=== PATIENT | female | born 1975 | race Caucasian/White ===

== ENCOUNTER 2017-06-03 17:37 | Emergency (ER) | payer OTHER ==
[~2017-06-03] VITALS: Ht 162.6 cm; Wt 59.7 kg
[~2017-06-03 17:37] MED LIST: ESTR1TAB12 PO; MORP1INJ45 PO; MORP60TA20 PO
[2017-06-03 17:42] VITALS: BP 138/83; PULSE 92; RESP 17; TEMP 98; O2SAT 100
[2017-06-03] MEDS ORDERED: SODIUM CHLOR 0.9% 1000 ML INJ 1,000 ML IV SCH (17:58)
[2017-06-03] MEDS ORDERED: SODIUM CHLORIDE 0.9% FLUSH 10 ML FLUSH IV FLUSH PRN (18:00)
[2017-06-03] MEDS ORDERED: ONDANSETRON HCL 4 MG/2 ML VIAL IVP ONE (18:00)
[2017-06-03] MEDS ORDERED: MORPHINE SULFATE 2 MG/ML INJ IV PUSH ONE (18:00)
--- NOTE | 2017-06-03 18:01 | PD ---
HPI Chief Complaint: Flank/Kidney Pain Time Seen by Provider: 17:52 Travel History International Travel<30 days: No Contact w/Intl Traveler<30days: No Traveled to known affect area: No History of Present Illness HPI 41-year-old female with history of nephrolithiasis, followed by urology at the [facility], here for evaluation of bilateral flank pain. Patient reports that the pain has been going on for the last week, described as cramping, radiates to her bilateral lower abdomen, currently 8 out of 10, constant, intermittently worse at times, worse after urinating. She has not had any fevers or chills. She has become nauseous with vomiting. She did have a few episodes of loose bowel movements 3 days ago. History of hysterectomy and appendectomy. PFSH Past Medical History Blood Disorders: No Anxiety: Yes Depression: Yes Heart Rhythm Problems: No Cancer: No Cardiovascular Problems: No High Cholesterol: No Chest Pain: No Congestive Heart Failure: No Diabetes: No Diminished Hearing: No Endocrine: No Gastrointestinal Disorders: Yes Headaches: Yes Immune Disorder: No Implanted Vascular Access Dvce: No Kidney Stones: Yes Musculoskeletal: No Neurologic: No Psychiatric: Yes Reproductive: Yes (OVARIAN CYSTS) Respiratory: No Immunizations Current: No Thyroid Disease: No ?: Not Menopausal: Yes : 3 Para: 3 Miscarriage: 0 : 0 Ovarian Cysts: Yes (LEFT OVARIAN CYST BY HISTORY) Tubal Ligation: Yes (2005) Past Surgical History Abdominal Surgery: Yes Appendectomy: Yes Section: Yes (X's 3) Cholecystectomy: Yes Genitourinary Surgery: Yes (STENTS X2 AND REMOVALS) Gynecologic Surgery: Yes (TUBAL LIGATION) Hysterectomy: Yes Tonsillectomy: Yes Other Surgery: Yes ("lithotripsy's") Social History Alcohol Use: No Tobacco Use: No Substance Use: No Allergies-Medications (Allergen,Severity, Reaction): Coded Allergies: gabapentin (Verified Allergy, Severe, shortness of breath, 06/03/17) iodine (Verified Allergy, Severe, "rash", 06/03/17) iohexol (Verified Allergy, Severe, Flushing,HIVES,iv contrast, 06/03/17) NEEDS TO BE PREMEDICATED potassium iodide (Verified Allergy, Severe, "rash", 06/03/17) povidone-iodine (Verified Allergy, Severe, "rash", 06/03/17) sodium iodide (Verified Allergy, Severe, "rash", 06/03/17) sodium iodide (Verified Allergy, Severe, "rash", 06/03/17) tamsulosin (Verified Allergy, Severe, "swell up", 06/03/17) Reported Meds & Prescriptions Reported Meds & Active Scripts Active Reported Chlorthalidone 25 Mg Tab 12.5 Mg PO DAILY Review of Systems Except as stated in HPI: all other systems reviewed are Neg Physical Exam Narrative GENERAL: Well-developed, well-nourished, no apparent distress. SKIN: Focused skin assessment warm/dry. No rash. HEAD: Atraumatic. Normocephalic. EYES: Pupils equal and round. No scleral icterus. No injection or drainage. ENT: No nasal bleeding or discharge. Mucous membranes pink and moist. CARDIOVASCULAR: Regular rate and rhythm. RESPIRATORY: No accessory muscle use. Clear to auscultation. Breath sounds equal bilaterally. GASTROINTESTINAL: Abdomen soft, nondistended. Mild lower abdominal suprapubic tenderness without peritoneal signs. Normal bowel sounds. MUSCULOSKELETAL: No obvious deformities. No clubbing. No cyanosis. No edema. Moderate bilateral CVA tenderness. NEUROLOGICAL: Awake and alert. No obvious cranial nerve deficits. Motor grossly within normal limits. Normal speech. No motor deficits. Normal strength in all 4 extremities. PSYCHIATRIC: Appropriate mood and affect; insight and judgment normal. Data Data Last Documented VS Vital Signs Date Time Temp Pulse Resp B/P (MAP) Pulse Ox O2 Delivery O2 Flow Rate FiO2 06/03/17 19:19 92 16 102/68 (79) 99 Room Air 06/03/17 17:42 98.0 Orders Orders Complete Blood Count With Diff (06/03/17 17:58) Comprehensive Metabolic Panel (06/03/17 17:58) Lipase (06/03/17 17:58) Prothrombin Time / Inr (Pt) (06/03/17 17:58) Act Partial Throm Time (Ptt) (06/03/17 17:58) Urinalysis - C+S If Indicated (06/03/17 17:58) Ct Abd/Pel W/O Iv Contrast (06/03/17 17:58) Iv Access Insert/Monitor (06/03/17 17:58) Ecg Monitoring (06/03/17 17:58) Oximetry (06/03/17 17:58) Ondansetron Inj (Zofran Inj) (06/03/17 18:00) Sodium Chlor 0.9% 1000 Ml Inj (Ns 1000 M (06/03/17 17:58) Sodium Chloride 0.9% Flush (Ns Flush) (06/03/17 18:00) Morphine Inj (Morphine Inj) (06/03/17 18:00) Urine Culture (06/03/17 18:14) Ceftriaxone Inj (Rocephin Inj) (06/03/17 18:45) Phenazopyridine (Pyridium) (06/03/17 18:45) Hydromorphone Pf Inj (Dilaudid Pf Inj) (06/03/17 18:45) Labs Laboratory Tests Test 06/03/17 18:14 White Blood Count 6.9 TH/MM3 Red Blood Count 4.71 MIL/MM3 Hemoglobin 14.3 GM/DL Hematocrit 42.5 % Mean Corpuscular Volume 90.2 FL Mean Corpuscular Hemoglobin 30.3 PG Mean Corpuscular Hemoglobin Concent 33.5 % Red Cell Distribution Width 11.9 % Platelet Count 181 TH/MM3 Mean Platelet Volume 8.7 FL Neutrophils (%) (Auto) 61.2 % Lymphocytes (%) (Auto) 29.6 % Monocytes (%) (Auto) 7.1 % Eosinophils (%) (Auto) 1.3 % Basophils (%) (Auto) 0.8 % Neutrophils # (Auto) 4.1 TH/MM3 Lymphocytes # (Auto) 2.1 TH/MM3 Monocytes # (Auto) 0.5 TH/MM3 Eosinophils # (Auto) 0.1 TH/MM3 Basophils # (Auto) 0.1 TH/MM3 CBC Comment DIFF FINAL Differential Comment Prothrombin Time 10.6 SEC Prothromb Time International Ratio 1.0 RATIO Activated Partial Thromboplast Time 28.7 SEC Urine Color YELLOW Urine Turbidity CLEAR Urine pH 6.5 Urine Specific [place] 1.020 Urine Protein NEG mg/dL Urine Glucose (UA) NEG mg/dL Urine Ketones TRACE mg/dL Urine Occult Blood NEG Urine Nitrite NEG Urine Bilirubin NEG Urine Leukocyte Esterase TRACE Urine WBC 20-24 /hpf Urine WBC Clumps FEW Urine Squamous Epithelial Cells 0-5 /hpf Urine Bacteria FEW /hpf Microscopic Urinalysis Comment CULTURE INDICATED Blood Urea Nitrogen 17 MG/DL Creatinine 0.90 MG/DL Random Glucose 91 MG/DL Total Protein 7.5 GM/DL Albumin 4.0 GM/DL Calcium Level 9.4 MG/DL Alkaline Phosphatase 73 U/L Aspartate Amino Transf (AST/SGOT) 13 U/L Alanine Aminotransferase (ALT/SGPT) 17 U/L Total Bilirubin 0.3 MG/DL Sodium Level 137 MEQ/L Potassium Level 3.9 MEQ/L Chloride Level 102 MEQ/L Carbon Dioxide Level 29.7 MEQ/L Anion Gap 5 MEQ/L Estimat Glomerular Filtration Rate 69 ML/MIN Lipase 325 U/L [facility] Medical Decision Making Medical Screen Exam Complete: Yes Emergency Medical Condition: Yes Differential Diagnosis Nephrolithiasis, ureterolithiasis, pancreatitis, pyelonephritis, UTI, cystitis, renal colic, colitis Narrative Course Vital signs show heart rate 85, blood pressure 118/83, pulse ox 100% on room air , oral temp of 98F. CBC is unremarkable. CMP is unremarkable. Lipase is 325. UA: Trace site esterase, trace ketones, 20-24 WBCs, few wbc clumps, few bacteria. Patient was started on IV Rocephin. CT abdomen pelvis: CONCLUSION: Medullary nephrocalcinosis and small bilateral nonobstructing kidney stones. Appearance is similar to prior exam Patient was made aware of all findings and although she was given a dose of 4 mg of IV morphine, he continues to have pain. She is resting comfortably and is in no acute distress. She was given IV Rocephin for her UA findings. She will be given a dose of IV Dilaudid, and if her pain improves, she is stable for discharge home with outpatient follow-up with her primary care physician and urologist this week. She will be started on Bactrim. She was advised on when to return to the emergency department. She verbalizes understanding and agreement with plan. Patient was given 1 mg of IV Dilaudid with resolution of pain. Diagnosis Primary Impression: UTI (urinary tract infection) Qualified Codes: N10 - Acute pyelonephritis Additional Impressions: Bilateral flank pain Nephrolithiasis Referrals: Primary Care Physician 3 days Urologist 3 days Additional Instructions: Follow-up with your primary care physician this week. Follow-up with your urologist this week. Return to the emergency department for worsening symptoms or any other concerns. Scripts Phenazopyridine (Pyridium) 100 Mg Tab 100 MG PO Q8H Y for DYSURIA for 5 Days, #15 TAB 0 Refills Prov: Misbah Ovalle MD 06/03/17 Hydrocodone-Acetaminophen (Hydrocodone-Acetaminophen) 5-300 Mg Tab 1 TAB PO Q6H Y for PAIN, #15 TAB 0 Refills Prov: Misbah Ovalle MD 06/03/17 Sulfamethoxazole-Trimethoprim (Bactrim DS) 800-160 Mg Tab 1 TAB PO BID for Infection for 14 Days, #28 TAB 0 Refills Prov: Misbah Ovalle MD 06/03/17 Disposition: 01 DISCHARGE HOME Condition: Stable Misbah Ovalle MD Jun 03, 2017 18:01
[2017-06-03 18:14] VITALS: O2SAT 97
[2017-06-03] MEDS ORDERED: CHLO25TA2 PO (18:23)
[2017-06-03 18:24] LABS: AUTOMATED NEUTROPHIL # 4.1 TH/MM3 (1.8-7.7); BASOPHIL # 0.1 TH/MM3 (0-0.2); BASOPHIL % 0.8 % (0.0-2.0); EOSINOPHIL # 0.1 TH/MM3 (0-0.4); EOSINOPHIL % 1.3 % (0.0-4.0); HEMATOCRIT 42.5 % (35.0-46.0); HEMOGLOBIN 14.3 GM/DL (11.6-15.3); LYMPH % 29.6 % (9.0-44.0); LYMPHOCYTE # 2.1 TH/MM3 (1.0-4.8); MEAN CELL VOLUME 90.2 FL (80.0-100.0); MEAN CORPUSCULAR HEMOGLOBIN 30.3 PG (27.0-34.0); MEAN CORPUSCULAR HGB CONC 33.5 % (32.0-36.0); MEAN PLATELET VOLUME 8.7 FL (7.0-11.0); MONO % 7.1 % (0.0-8.0); MONOCYTE # 0.5 TH/MM3 (0-0.9); NEUT % 61.2 % (16.0-70.0); PLATELET COUNT 181 TH/MM3 (150-450); RED BLOOD COUNT 4.71 MIL/MM3 (4.00-5.30); RED CELL DISTRIBUTION WIDTH 11.9 % (11.6-17.2); WHITE BLOOD COUNT 6.9 TH/MM3 (4.0-11.0)
[2017-06-03 18:25] LABS: BILIRUBIN, URINE NEG (NEG); BLOOD, URINE NEG (NEG); GLUCOSE,URINE NEG (NEG); KETONE, URINE TRACE mg/dL (NEG); NITRITE,URINE NEG (NEG); PH, URINE 6.5 (5.0-8.5); URINE LEUKOCYTE ESTERASE TRACE (NEG)
[2017-06-03 18:34] LABS: URINE COLOR YELLOW (YELLW/STRAW)
[2017-06-03 18:36] LABS: BACTERIA, URINE FEW /hpf; CHLORIDE 102 MEQ/L (98-107); SODIUM (NA) 137 MEQ/L (136-145); SQUAMOUS EPITHELIAL CELL URINE 0-5 /hpf (0-5); WHITE BLOOD CELL CLUMPS FEW
[2017-06-03 18:39] LABS: BICARBONATE 29.7 MEQ/L (21.0-32.0); CALCIUM 9.4 MG/DL (8.5-10.1); LIPASE 325 U/L (73-393)
[2017-06-03 18:40] VITALS: BP 118/83; PULSE 85; RESP 16; O2SAT 100
[2017-06-03 18:40] LABS: BLOOD UREA NITROGEN 17 MG/DL (7-18); GLUCOSE,RANDOM 91 MG/DL (74-106)
[2017-06-03 18:41] LABS: PROTHROMBIN TIME - PATIENT 10.6 SEC (9.8-11.6)
[2017-06-03 18:42] LABS: ALT (GPT) 17 U/L (10-53); AST (GOT) 13 U/L (15-37); GLOMERULAR FILTRATION RATE 69 ML/MIN (>89)
[2017-06-03 18:44] LABS: TOTAL BILIRUBIN ADULT 0.3 MG/DL (0.2-1.0); TOTAL PROTEIN 7.5 GM/DL (6.4-8.2)
[2017-06-03 18:45] LABS: ALKALINE PHOSPHATASE 73 U/L (45-117)
[2017-06-03] MEDS ORDERED: cefTRIAXone INJ 1,000 MG in SODIUM CHLORIDE 0.9% INJ 100 ML IV ONE (18:45)
[2017-06-03] MEDS ORDERED: HYDROmorphone HCL PF 2 MG/ML VIAL IV PUSH ONE (18:45)
[2017-06-03] MEDS ORDERED: PHENAZOPYRIDINE HCL 200 MG TAB PO ONE (18:45)
--- NOTE | 2017-06-03 19:04 | RADRPT ---
EXAM DATE/TIME: 06/03/2017 18:42 [place] COMPARISON: CT ABDOMEN & PELVIS W/O CONTRAST, February 10, 2015, 20:13. INDICATIONS : Bilateral flank pain for one week. ORAL CONTRAST: No oral contrast ingested. RADIATION DOSE: 9.57 CTDIvol (mGy) MEDICAL HISTORY : Renal calculi. Ovarian cysts. SURGICAL HISTORY : Appendectomy. Cholecystectomy.Hysterectomy.Tubal ligation, x 3. ENCOUNTER: Initial ACUITY: 1 week PAIN SCALE: 8/10 LOCATION: Bilateral flank TECHNIQUE: Volumetric scanning of the abdomen and pelvis was performed. Using automated exposure control and ad justment of the mA and/or kV according to patient size, radiation dose was kept as low as reasonably achievable to obtain optimal diagnostic quality images. DICOM format image data is available electro nically for review and comparison. FINDINGS: LOWER LUNGS: The visualized lower lungs are clear. LIVER: Visualized portions are unremarkable. Gallbladder is surgically absent. SPLEEN: Normal size without lesion. PANCREAS: Within normal limits. KIDNEYS: Medullary nephrocalcinosis and small nonobstructing stones present bilaterally. No evidence of hydron ephrosis. No evidence of ureteral stone. ADRENAL GLANDS: Within normal limits. VASCULAR: There is no aortic aneurysm. BOWEL/MESENTERY: The stomach, small bowel, and colon demonstrate no acute abnormality. There is no free intraperitone al air or fluid. ABDOMINAL WALL: Within normal limits. RETROPERITONEUM: There is no lymphadenopathy. BLADDER: No wall thickening or mass. REPRODUCTIVE: Within normal limits. INGUINAL: There is no lymphadenopathy or hernia. MUSCULOSKELETAL: Within normal limits for patient age. CONCLUSION: Medullary nephrocalcinosis and small bilateral nonobstructing kidney stones. Appearance is similar to prior exam Jus James MD on June 03, 2017 at 19:00 Board Certified Radiologist. This report was verified electronically.
[2017-06-03 19:19] VITALS: BP 102/68; PULSE 92; RESP 16; O2SAT 99
[2017-06-03] MEDS ORDERED: PHEN0.4T PO (19:54)
[2017-06-03] MEDS ORDERED: BACT800T5 PO (19:54)
[2017-06-03] MEDS ORDERED: HYDR-4107 PO (19:54)
[2017-06-03] MEDS ORDERED: METOCLOPRAMIDE HCL 10 MG/2 ML VIAL IV PUSH ONE (20:00)
[2017-06-03] MEDS ORDERED: ACETAMINOPHEN/HYDROcodone 325 MG/5 MG TAB PO ONE (20:15)
[2017-06-03 20:37] VITALS: BP 110/66; PULSE 88; RESP 16; O2SAT 99
== END 2017-06-03 20:40 | disposition home or self-care (01) ==
LOC: PHED 17:37
DX: N10 Acute pyelonephritis (principal); N20.0 Calculus of kidney; R11.2 Nausea with vomiting, unspecified
CPT/HCPCS: 74176; 80053; 81001; 83690; 85025; 85610; 85730; 87086; 96361; 96365; 96375; 99285; J0696; J1170; J2270; J2405; J2765; J7030

== ENCOUNTER 2017-06-23 19:18 | Emergency (ER) | payer OTHER ==
[~2017-06-23] VITALS: Ht 162.6 cm; Wt 60.2 kg
[~2017-06-23 19:18] MED LIST changes: +BACT800T5 PO; +CHLO25TA2 PO; -ESTR1TAB12 PO; +HYDR-4107 PO; -MORP1INJ45 PO; -MORP60TA20 PO; +PHEN0.4T PO
[2017-06-23 19:36] VITALS: BP 116/81; PULSE 109; RESP 18; TEMP 99.7; O2SAT 98
[2017-06-23] MEDS ORDERED: LORA0.5T PO (20:29)
[2017-06-23] MEDS ORDERED: HYDROmorphone HCL PF 1 MG/ML VIAL IVP ONE (21:30)
[2017-06-23] MEDS ORDERED: ONDANSETRON HCL 4 MG/2 ML VIAL IV ONE (21:30)
[2017-06-23 21:33] LABS: BILIRUBIN, URINE NEG (NEG); BLOOD, URINE MOD (NEG); GLUCOSE,URINE NEG (NEG); KETONE, URINE 15 mg/dL (NEG); NITRITE,URINE NEG (NEG); URINE LEUKOCYTE ESTERASE NEG (NEG)
[2017-06-23 21:44] LABS: URINE COLOR YELLOW (YELLW/STRAW)
[2017-06-23 21:45] LABS: RBC, URINE 0-3 /hpf (0-3); SQUAMOUS EPITHELIAL CELL URINE 0-5 /hpf (0-5); WHITE BLOOD CELL CLUMPS FEW
[2017-06-23] MEDS: SODIUM CHLOR 0.9% 1000 ML INJ 1,000 ML IV SCH ×2 (21:45→21:53)
[2017-06-23 21:53] LABS: AUTOMATED NEUTROPHIL # 1.3 TH/MM3 (1.8-7.7); BASOPHIL % 0.5 % (0.0-2.0); EOSINOPHIL # 0.1 TH/MM3 (0-0.4); EOSINOPHIL % 2.2 % (0.0-4.0); HEMATOCRIT 37.8 % (35.0-46.0); HEMOGLOBIN 12.8 GM/DL (11.6-15.3); LYMPH % 34.7 % (9.0-44.0); LYMPHOCYTE # 0.9 TH/MM3 (1.0-4.8); MEAN CELL VOLUME 89.9 FL (80.0-100.0); MEAN CORPUSCULAR HEMOGLOBIN 30.5 PG (27.0-34.0); MEAN PLATELET VOLUME 8.5 FL (7.0-11.0); MONO % 14.8 % (0.0-8.0); MONOCYTE # 0.4 TH/MM3 (0-0.9); NEUT % 47.8 % (16.0-70.0); PLATELET COUNT 114 TH/MM3 (150-450); RED CELL DISTRIBUTION WIDTH 11.8 % (11.6-17.2); WHITE BLOOD COUNT 2.7 TH/MM3 (4.0-11.0)
[2017-06-23 22:04] LABS: CALCIUM 8.7 MG/DL (8.5-10.1)
[2017-06-23 22:08] LABS: CREATININE 0.77 MG/DL (0.50-1.00)
[2017-06-23] MEDS ORDERED: PHEN0.4T PO (22:40)
[2017-06-23] MEDS ORDERED: MACR100C2 PO (22:40)
--- NOTE | 2017-06-23 22:40 | PD ---
HPI Chief Complaint: Flank/Kidney Pain Time Seen by Provider: 21:18 Travel History International Travel<30 days: No Contact w/Intl Traveler<30days: No Traveled to known affect area: No History of Present Illness HPI The patient is a 41-year-old female who has a history of medullary sponge kidney and who complains of fever, bilateral flank pain for 3 days. She has nausea without vomiting. The fever has been low-grade. She has been on Cipro given to her by her primary care physician, Dr. Demetrio Hyatt. She completed a course of Cipro about 4 days ago. She states her fever was 104 2 days ago. The patient does have dysuria, particularly after she completes urinating. PFSH Past Medical History Blood Disorders: No Anxiety: Yes Depression: Yes Heart Rhythm Problems: No Cancer: No Cardiovascular Problems: No High Cholesterol: No Chest Pain: No Congestive Heart Failure: No Diabetes: No Diminished Hearing: No Endocrine: No Gastrointestinal Disorders: Yes Genitourinary: Yes (Medullary sponge kidney ) Headaches: Yes Immune Disorder: No Implanted Vascular Access Dvce: No Kidney Stones: Yes Musculoskeletal: No Neurologic: No Psychiatric: Yes Reproductive: Yes (OVARIAN CYSTS) Respiratory: No Immunizations Current: No Thyroid Disease: No Tetanus Vaccination: > 5 Years Influenza Vaccination: No ?: Not Menopausal: Yes : 3 Para: 3 Miscarriage: 0 : 0 Ovarian Cysts: Yes (LEFT OVARIAN CYST BY HISTORY) Tubal Ligation: Yes (2005) Past Surgical History Abdominal Surgery: Yes Appendectomy: Yes Section: Yes (X's 3) Cholecystectomy: Yes Genitourinary Surgery: Yes (STENTS X2 AND REMOVALS) Gynecologic Surgery: Yes (TUBAL LIGATION) Hysterectomy: Yes (AGE 34) Insulin Pump: No Tonsillectomy: Yes Other Surgery: Yes ("lithotripsy's") Social History Alcohol Use: No Tobacco Use: No Substance Use: No Allergies-Medications (Allergen,Severity, Reaction): Coded Allergies: gabapentin (Verified Allergy, Severe, shortness of breath, 06/23/17) iodine (Verified Allergy, Severe, "rash", 06/23/17) iohexol (Verified Allergy, Severe, Flushing,HIVES,iv contrast, 06/23/17) NEEDS TO BE PREMEDICATED potassium iodide (Verified Allergy, Severe, "rash", 06/23/17) povidone-iodine (Verified Allergy, Severe, "rash", 06/23/17) sodium iodide (Verified Allergy, Severe, "rash", 06/23/17) sodium iodide (Verified Allergy, Severe, "rash", 06/23/17) tamsulosin (Verified Allergy, Severe, "swell up", 06/23/17) Reported Meds & Prescriptions Reported Meds & Active Scripts Active Hydrocodone-Acetaminophen 5-300 Mg Tab 1 Tab PO Q6H PRN Reported Lorazepam 0.5 Mg Tab 0.5 Mg PO BID Chlorthalidone 25 Mg Tab 12.5 Mg PO DAILY Review of Systems Except as stated in HPI: all other systems reviewed are Neg Physical Exam Narrative GENERAL: The patient is alert, oriented 3 in moderate apparent distress with her bilateral flank pain. Her vital signs show heart rate of 109 and temperature 99.7 but are otherwise normal. SKIN: Focused skin assessment warm/dry. HEAD: Atraumatic. Normocephalic. EYES: Pupils equal and round. No scleral icterus. No injection or drainage. ENT: No nasal bleeding or discharge. Mucous membranes pink and moist. NECK: Trachea midline. No JVD. CARDIOVASCULAR: Regular rate and rhythm. No murmur appreciated. RESPIRATORY: No accessory muscle use. Clear to auscultation. Breath sounds equal bilaterally. GASTROINTESTINAL: Abdomen soft, non-tender, nondistended. Hepatic and splenic margins not palpable. Bilateral flank tenderness is present and she has suprapubic tenderness as well. No guarding or rebound is present. MUSCULOSKELETAL: No obvious deformities. No clubbing. No cyanosis. No edema. NEUROLOGICAL: Awake and alert. No obvious cranial nerve deficits. Motor grossly within normal limits. Normal speech. PSYCHIATRIC: Appropriate mood and affect; insight and judgment normal. Data Data Last Documented VS Vital Signs Date Time Temp Pulse Resp B/P (MAP) Pulse Ox O2 Delivery O2 Flow Rate FiO2 06/23/17 19:36 99.7 109 18 116/81 (93) 98 Orders Orders Urinalysis - C+S If Indicated (06/23/17 21:08) Complete Blood Count With Diff (06/23/17 21:18) Basic Metabolic Panel (Bmp) (06/23/17 21:18) Ondansetron Inj (Zofran Inj) (06/23/17 21:30) Sodium Chlor 0.9% 1000 Ml Inj (Ns 1000 M (06/23/17 21:30) Hydromorphone Pf Inj (Dilaudid Pf Inj) (06/23/17 21:30) Urine Culture (06/23/17 21:14) Labs Laboratory Tests Test 06/23/17 21:14 06/23/17 21:28 Urine Color YELLOW Urine Turbidity CLEAR Urine pH 6.0 Urine Specific [place] 1.017 Urine Protein NEG mg/dL Urine Glucose (UA) NEG mg/dL Urine Ketones 15 mg/dL Urine Occult Blood MOD Urine Nitrite NEG Urine Bilirubin NEG Urine Leukocyte Esterase NEG Urine RBC 0-3 /hpf Urine WBC 25-49 /hpf Urine WBC Clumps FEW Urine Squamous Epithelial Cells 0-5 /hpf Microscopic Urinalysis Comment CULTURE INDICATED White Blood Count 2.7 TH/MM3 Red Blood Count 4.20 MIL/MM3 Hemoglobin 12.8 GM/DL Hematocrit 37.8 % Mean Corpuscular Volume 89.9 FL Mean Corpuscular Hemoglobin 30.5 PG Mean Corpuscular Hemoglobin Concent 34.0 % Red Cell Distribution Width 11.8 % Platelet Count 114 TH/MM3 Mean Platelet Volume 8.5 FL Neutrophils (%) (Auto) 47.8 % Lymphocytes (%) (Auto) 34.7 % Monocytes (%) (Auto) 14.8 % Eosinophils (%) (Auto) 2.2 % Basophils (%) (Auto) 0.5 % Neutrophils # (Auto) 1.3 TH/MM3 Lymphocytes # (Auto) 0.9 TH/MM3 Monocytes # (Auto) 0.4 TH/MM3 Eosinophils # (Auto) 0.1 TH/MM3 Basophils # (Auto) 0.0 TH/MM3 CBC Comment DIFF FINAL Differential Comment Blood Urea Nitrogen 9 MG/DL Creatinine 0.77 MG/DL Random Glucose 86 MG/DL Calcium Level 8.7 MG/DL Sodium Level 137 MEQ/L Potassium Level 3.9 MEQ/L Chloride Level 103 MEQ/L Carbon Dioxide Level 28.0 MEQ/L Anion Gap 6 MEQ/L Estimat Glomerular Filtration Rate 82 ML/MIN [facility] Medical Decision Making Medical Screen Exam Complete: Yes Emergency Medical Condition: Yes Medical Record Reviewed: Yes Differential Diagnosis Pyelonephritis, cystitis, medullary sponge kidney by history, anemia, electrolyte disorder, urinary stone-unlikely Narrative Course The patient has pyelonephritis as well as cystitis. She has painful urination and bilateral flank pain/tenderness. She also has a fever with nausea/vomiting. Plan: The patient will be given Macrobid 500 mg twice daily for 10 days. She is to increase her liquid intake and follow-up with Dr. Hyatt. Diagnosis Primary Impression: Pyelonephritis Additional Impression: Cystitis Additional Instructions: Follow-up with Dr. Hyatt. Increase liquid intake in the antibiotic is one twice daily for 10 days. The Pyridium turns your urine orange but does know up the urinary tract and relieve some of the symptoms. Med/Other Pt SpecificInfo: Prescription(s) given Scripts Nitrofurantoin Monohydrate Macrocrystals (Macrobid) 100 Mg Cap 100 MG PO BID for Infection for 10 Days, #20 CAP 0 Refills Prov: Horace Lopez MD 06/23/17 Phenazopyridine (Pyridium) 100 Mg Tab 100 MG PO Q8H Y for DYSURIA, #21 TAB 0 Refills Prov: Horace Lopez MD 06/23/17 Disposition: 01 DISCHARGE HOME Condition: Stable Horace Lopez MD Jun 23, 2017 22:40
[2017-06-23] MEDS ORDERED: NITROFURANTOIN MONOHYD MACROCR 100 MG CAP PO ONE (22:45)
[2017-06-23] MEDS ORDERED: PHENAZOPYRIDINE HCL 100 MG TAB PO ONE (22:45)
[2017-06-23 22:59] VITALS: BP 138/88; PULSE 84; RESP 18; TEMP 98.7; O2SAT 98
== END 2017-06-23 23:02 | disposition home or self-care (01) ==
LOC: PHED 19:18
DX: N12 Tubulo-interstitial nephritis, not specified as acute or chronic (principal); N30.00 Acute cystitis without hematuria; F41.8 Other specified anxiety disorders; Q61.5 Medullary cystic kidney
CPT/HCPCS: 80048; 81001; 85025; 87086; 96361; 96374; 96375; 99284; J1170; J2405; J7030